=== PATIENT | female | born 1980 | race Caucasian/White ===

== ENCOUNTER 2018-10-16 12:25 | Observation (INO) | payer OTHER, SELFPAY ==
[2018-10-09 15:08] VITALS: BMI 38.0
[2018-10-15] VITALS (16 sets, daily range): BP systolic 91–123; BP diastolic 47–74; PULSE 59–88; RESP 10–18; TEMP 36.4–36.8; O2SAT 94–99; BMI 36.6
--- NOTE | 2018-10-15 | PATH_ITS ---
[facility] Accession Number: [id number] . 01 Material submitted: . uterus - UTERUS, BILATERAL TUBES AND OVARIES . 02 Diagnosis: Uterus, Bilateral Fallopian Tubes and Ovaries, Supracervical Hysterectomy and Bilateral Salpingo-oophorectomy: 1. Morcellated uterus with secretory endometrium and a benign endometrial polyp. 2. Bilateral ovaries and fallopian tubes with no diagnostic abnormality. 3. No evidence of neoplasia or hyperplasia. MRV/10/18/2018 . 02 Electronically signed: . Phyllis Walton MD, Pathologist NPI- [id number] . 01 Gross description: . Received in formalin, labeled uterus, bilateral tubes / ovaries, is a morcellated uterus (136 grams, 16.3 x 9.7 x 3.3 cm), an ovary (3.3 x 3.0 x 1.8 cm) with an attached fimbriated fallopian tube (length-3.5 cm, diameter-0.5 cm), a second ovary (3.9 x 2.4 x 1.8 cm), and a detached fimbriated fallopian tube (length-4.5 cm, diameter-0.5 cm). The specimen cannot be oriented and the endometrium and myometrium cannot be grossly measured. The cervix cannot be identified. The uterine parenchyma is regalado and unremarkable. The serosa is pale regalado smooth and shiny. The ovaries have wilkinson-yellow smooth shiny flat serosa and regalado-pink solid cystic parenchyma with corpus albicans and corpus luteum identified. The cavities (0.1 cm-0.8 cm) contain clear colorless fluid. The linings are smooth and flat with no excrescences identified. The fallopian tubes have wilkinson-regalado dull serosa and regalado unremarkable lumens. Section code: (A1-A4) uterine parenchyma, representative phlebotomy services; (A5) ovary with fallopian tube, representative phlebotomy services serial sections; (A6) ovary without fallopian tube, representative phlebotomy services serial sections; (A7) attached fallopian tube, representative phlebotomy services serial sections; (A8) attached fallopian tube fimbria, bivalved, entirely submitted; (A9) separate fallopian tube, representative phlebotomy services serial sections; (A10) separate fallopian tube fimbria; bivalved, entirely submitted. (JM:[id number]) A11-A15- additional representative phlebotomy services sections of endometrium and myometrium. /MRV . 02 Pathologist provided ICD-10: N93.9 . 02 CPT . 301198 Performed at: 01 [facility] [address] [facility], [place], [place] [id number] MD Luis Carlos Guillory MD Phone: [phone] Performed at: 02 [facility] [address] [place], [place] [id number] MD Phyllis Walton MD Phone: [phone]
[2018-10-15] MEDS: LACTATED RINGERS 1,000 ML 42 ML IV ×2 (07:28→09:19)
--- NOTE | 2018-10-15 07:40 | PM.PREOP ---
Pre-operative Note Interval Note History & Physical reviewed/Exam performed by Physician: Yes Changes to H&P: No
[2018-10-15] MEDS: CEFAZOLIN 2 GM/100 ML FROZ.PIGGY IV (07:45)
--- NOTE | 2018-10-15 08:26 | SUR.OPER ---
Lithotomy on padded OR bed. [place] Pad Positioner under torso. Head on pillow, arms padded and tucked at sides. Legs secured in padded yellow fins stirrups.
[2018-10-15] MEDS: BUPIVACAINE 0.5% W/ EPI (PF) VIAL 30 ML INJ (08:42)
[2018-10-15] MEDS: SODIUM CHLORIDE 0.9% FLUSH 10 ML IV (08:43)
[2018-10-15] MEDS: ROPIVACAINE 0.2% PF 2 MG/ML 10ML AMP 20 ML INJ (08:44)
--- NOTE | 2018-10-15 10:48 | SUR.PHASEI ---
Addendum entered by Eufemia Cotton R.N. 10/15/18 10:49: skin warm and dry, resp unlabored Original Note: 1035 Arouses easily to voice, very drowsy; warm blankets given, sites checked - CDI; 1045 Dr. Khanna has checked on the patient x2; stable; continues sleeping.
[2018-10-15] MEDS: HYDROMORPHONE 2 MG INJ 0.5 MG IV ×4 (10:55→11:44)
--- NOTE | 2018-10-15 11:02 | SUR.PHASEI ---
IV rx x2; patient was tearful after first dose, stating that this was the pain that she'd had all her life and was concerned that it wouldn't resolve. reassurance given. Report called to floor, followed by 2nd dose of pain med at the patient's request. Calm, no longer tearful, stated that her pain had improved.
--- NOTE | 2018-10-15 11:20 | SUR.PHASEI ---
3rd dose of pain med given. patient calm, no grimace, moaning, restlessness; just voices concern that the pain will not resolve. reassurance given.
--- NOTE | 2018-10-15 11:21 | SUR.PHASEI ---
RA sat 93%, returned to 2LNP; dozing. resp unlabored, skin warm and dry
--- NOTE | 2018-10-15 11:27 | SUR.PHASEI ---
no nausea, declines ice chips. pillow repositioned for comfort.
[2018-10-15] MEDS: ONDANSETRON 4 MG/2 ML INJ IV ×3 (11:41→22:25)
--- NOTE | 2018-10-15 11:43 | SUR.PHASEI ---
1141 attempted to give water, crackers and PO rx prior to transfer. Became nauseated after water. Rx given.
--- NOTE | 2018-10-15 11:51 | SUR.PHASEI ---
states that nausea has resolved; sleeping
--- NOTE | 2018-10-15 12:05 | SUR.PHASEI ---
Report update called to acute care RN; transported to floor by Teodora murphy RN
[2018-10-15] MEDS: LACTATED RINGERS 1,000 ML 100 ML IV ×2 (12:47→22:33)
[2018-10-15] MEDS: KETOROLAC 30 MG/ML VIAL IV ×2 (14:13→19:13)
[2018-10-15] MEDS: HYDROMORPHONE PCA (6MG/30ML) 6 MG/30 ML PCA.VIAL IV (15:44)
[2018-10-15] MEDS: METOCLOPRAMIDE 10 MG/2 ML INJ IV (17:01)
[2018-10-15] MEDS: DOCUSATE 250 MG CAPSULE PO (20:12)
--- NOTE | 2018-10-15 22:00 | PC.NURSE ---
Addendum entered by Phyllis Cuba R.N. 10/15/18 23:57: pt did better without dilaudid. given prns and torodol. pt did not want to try to morphine. wanted to have percocet. tried and pt stated percocet in the past has worked well for her. PT uses call gottlieb. prefers to have all four side rails up. scds on. will continue to monitor pt for safety. Original Note: 1500 Assumed care of pt. Pt dozes off. rated pain still at 5/10. and nauseated. given prns. started COUNTER MOLDER. mad nausea worse. called md and orders rec'd. md in to see pt not much later and meds changed. pt reported after Dilaudid was stopped had no more nausea. still mild pain. given prns and scheduled see AUG. dsg c.d.i. belongings and call light within reach. urine robyn with sediment. Pt uses call gottlieb. will continue to monitor. was able to keep some soup and Popsicle down. given other snacks per request. bed alarm on.
[2018-10-15] MEDS: OXYCODONE/ACETAMINOPHEN 5/325 TABLET 1 TAB PO (22:31)
[2018-10-16] VITALS (7 sets, daily range): BP systolic 116–131; BP diastolic 61–90; PULSE 72–91; RESP 16–18; TEMP 36.3–37.4; O2SAT 96–100
[2018-10-16] MEDS: KETOROLAC 30 MG/ML VIAL IV ×2 (00:56→06:05)
--- NOTE | 2018-10-16 02:17 | PC.NURSE ---
2300- POD#0 hysterectomy w/ 3 lap sites present on lower abdomen CDI. Pain managed at this time; moving 1PA w/ FWW. LR running as ordered into L hand periph IV. Pt stated Dilaudid made her sick, does not want to receive this med--prefers Percocet. 0100- Sched IV Toradol given; pt denies any needs. 0600- IV toradol given as scheduled.
[2018-10-16 05:59] LABS: Add Manual Diff / Slide Review NO; Basophils Absolute Auto 0 /uL (0-100); Basophils Percent Auto 0.3 % (0-2); Eosinophils Absolute Auto 0 /uL (0-450); Eosinophils Percent Auto 0.1 % (2-4); Hematocrit 33.3 % (36-46); Hemoglobin 11.1 g/dL (12.0-16.0); Lymphocytes Absolute Auto 1900 /uL (1100-4500); Lymphocytes Percent Auto 14.2 % (25-40); Mean Corpuscular HGB Conc 33.4 % (30-36); Mean Corpuscular Hemoglobin 27.6 PG (26-34); Mean Corpuscular Volume 82.6 fL (80-100); Monocytes Absolute Auto 1200 /uL (0-900); Monocytes Percent Auto 9.1 % (3-14); Neutrophils Absolute Auto 10200 /uL (1500-7000); Neutrophils Percent Auto 76.3 % (50-75); Platelet Count 241 X10^3/uL (150-400); Red Blood Cell Count 4.03 X10^6/uL (4.0-5.2); Red Cell Distribution Width 14.1 % (11.6-14.8); White Blood Cell Count 13.4 X10^3/uL (4.5-11.0)
[2018-10-16] MEDS: DOCUSATE 250 MG CAPSULE PO ×2 (08:24→20:13)
[2018-10-16] MEDS: OXYCODONE/ACETAMINOPHEN 5/325 TABLET 1 TAB PO ×3 (08:25→16:34)
--- NOTE | 2018-10-16 11:22 | PC.NURSE ---
Day Shift- At 1122, rec'd call from JEN Storm at Dr. Ames's office. Reported voided 400mls at 0820 and PVR was 0 mls. Pt voided again at 1100 for 150mls. S/L'd IVF at 1100. Pt drinking well, Okay with Dotty LI at this time. Lower pelvic area, lower abd pain controlled with PRN Percocet. No nausea, tolerating regular diet.
--- NOTE | 2018-10-16 16:31 | PC.NURSE ---
1500- rochelle shift- assumed care of pt from outgoing shift. pt states she feels much better today. Pt denies nausea at this time. Pt complains of pain. states she tried to pee every hour/1.5 hrs otherwise she feels that her bladder gets too full and that causes her pain. Pt given prns per AUG. pt ambulate steady gait in room per self. calls when needing assistance. flushed face. pt stated that she has been having problems with some caregivers for her father at home and is worried a bit about that. she is happy to stay another night to not have to deal with the situation entirely yet. will continue to monitor.
--- NOTE | 2018-10-16 16:41 | CM.DANOTE ---
Discharge Planning/Care Management DCP: assessment: case received this morning and discussed in Team Rounds. Pt is a 38 year old female who admitted yesterday for a planned gynecological procedure: per nursing notes: hysterectomy and bladder sling: Surgeon: Dr. Ames. No H&P or OP report is available at this time in the EMR. Payer: [employer]ou[employer] OWENS. PCP: listed: Vicky Burdick Pt lives with her in [place]. Review of Rn notes from this afternoon show that pt is expecting to stay overnight. Anticipate pt will d/c home once deemed stable for same by Dr. Ames/ DCP team will follow prn for any needs that may arise. CM Discharge Assessment Start: 10/16/18 16:40 Freq: Status: Active Protocol: Document 10/16/18 16:40 ITV (Rec: 10/16/18 16:41 ITV [id number]) Discharge Planning Assessment Advance Directives? No History Provided By Medical Record Prior Living Arrangements House Household Members family Independent with ADL's Yes Is patient alert and oriented? Yes Review Status In Process Next Review Type Continued Stay Review Pre-Anesthesia Assessment Start: 10/09/18 15:08 Freq: Status: Complete Protocol: Document 10/09/18 15:08 CAB (Rec: 10/09/18 15:11 CAB [id number]) Pre-Anesthesia Assessment Patient Information Reviewed Via Chart Review Primary Care Provider Lyndon Bowers Seen Specialist in Last 12 Months Yes Specialist Seen [employer] Primary Language [employer] House Supervisor Required No Height 154.94 cm Weight 91.172 kg Body Mass Index (BMI) 38.0 Anesthesia Review Requested No Shear Helper No Smoking Status Never smoker Pain Present Pain Reported Comment Pelvic History of Falling (Recent or History of No ) Patient is completely paralyzed or No completely immobile Mental Status Oriented to own ability Currently Taking a Beta Porsche No Anti-Coagulant Therapy No Has a Structured Cabling Technician No Cardiac Testing No Hx Pacemaker/ICD No Pacemaker Rep Required? No Cardiac Clearance Received Not Applicable Urinary Catheter Present No Hx Urinary Self Catheterization No Diabetes No Patient Discharge Plan Description Return Home
[2018-10-16] MEDS: SODIUM CHLORIDE 0.9% FLUSH 10 ML IV (20:13)
[2018-10-16] MEDS: OXYCODONE/ACETAMINOPHEN 5/325 TABLET 2 TAB PO (20:13)
--- NOTE | 2018-10-16 21:08 | PM.PNPO.1 ---
Subjective Date Patient Seen: 10/16/18 Time Patient Seen: 13:30 Interval history: Patient is postop day # 1 status post laparoscopic supracervical hysterectomy, bilateral salpingo oophorectomy, and TVT with cystoscopy Patient had significant postop pain management and nausea and vomiting last evening. We are still struggling with this today. She has voided 400 cc with no postvoid residual. She then voided 150 cc with no postvoid residual urine. Exam Vital Signs (past 8 hours): - 10/16/18 14:00 10/16/18 16:15 10/16/18 19:00 Temperature 98.8 F 98.1 F 98.5 F Pulse Rate 91 H 90 89 Respiratory Rate 16 16 18 Blood Pressure 128/90 125/82 128/72 Pulse Oximetry 99 100 100 Oxygen Delivery Method Room Air Oxygen Flow Rate 0 Narrative Exam Narrative: Generally: Patient is sitting up in bed, no acute distress Lungs: Clear to auscultation bilaterally Cardiovascular: Regular rate and rhythm Abdomen: Soft, flat, good bowel sounds in all 4 quadrants. Incisions: Clean dry and intact with op site Extremities: SCDs in place Objective Labs Result Diagrams: 10/16/18 05:10 Labs: Laboratory Results - last 24 hr 10/16/18 05:10 WBC 13.4 H RBC 4.03 Hgb 11.1 L Hct 33.3 L MCV 82.6 MCH 27.6 MCHC 33.4 RDW 14.1 Plt Count 241 Neut % (Auto) 76.3 H Lymph % (Auto) 14.2 L Richardson % (Auto) 9.1 Eos % (Auto) 0.1 L Baso % (Auto) 0.3 Neut # (Auto) 26420 H Lymph # (Auto) 1900 Richardson # (Auto) 1200 H Eos # (Auto) 0 Baso # (Auto) 0 Assessment & Plan Post-op Postoperative Procedures Operation Date: 10/15/18 07:45 Actual Procedures Side Surgeon p LSCH w/Bilat S&O Loren Ames MD s Tensionless Vaginal Tape w/Cystoscopy Loren Ames MD Postoperative day: 1 Postoperative status: marginal pain control and other (nausea and vomiting) Postoperative plan narrative: Con't n/v meds Pain control Anticipate d/c 10/17/18 Time Spent With Patient 15-24 minutes
[2018-10-17] MEDS: OXYCODONE/ACETAMINOPHEN 5/325 TABLET 2 TAB PO (06:02)
[2018-10-17 06:03] VITALS: BP 136/68; PULSE 74; RESP 16; TEMP 36.7; O2SAT 98
[2018-10-17 08:00] VITALS: BP 118/78; PULSE 64; RESP 16; TEMP 37; O2SAT 96
[2018-10-17] MEDS: DOCUSATE 250 MG CAPSULE PO (08:48)
[2018-10-17] MEDS: SODIUM CHLORIDE 0.9% FLUSH 10 ML IV (08:48)
[2018-10-17] MEDS: METOCLOPRAMIDE 10 MG/2 ML INJ IV (12:36)
--- NOTE | 2018-10-17 12:50 | PC.NURSE ---
PATIENT DENIES TROUBLE W/ URINATION, PASSING FLATUS. DISCUSSED PREVENTION OF CONSTIPATION. THIS AFTERNOON SHE STATES THAT SHE NOTICES THAT AFTER TAKING 2 TABS OXY THIS AM, HER STOMACH IS UPSET AND SHE FEELS SOMEWHAT NAUSEATED. GIVEN IV REGLAN. PATIENT STATES THAT HAS HAPPENED IN THE PAST IF SHE TAKES 2. STATES SHE TOLERATES 1 TAB. INSTRUCTED PATIENT THAT IF NAUSEA CONTINUES WHEN SHE GOES HOME, SHE CAN CALL DR. JAMA'S OFFICE AND REQUEST ANTIEMETIC TO BE CALLED IN TO HER PHARMACY. PATIENT CONFIRMS UNDERSTANDING. SET UP FOR A SHOWER. ALL HER DRSG SITES ARE OCCLUSIVE WITH TEGADERM OVER GAUZE. SHE HAS A FRIEND HERE WHO WILL DRIVE HER HOME. SHE STATES SHE DID TAKE A GOOD NAP THIS AM.
--- NOTE | 2018-10-30 14:07 | P.OP_ITS ---
Operative Date/Time/Diagnoses Date of procedure: 10/15/18 Time of procedure: 10:30 Pre-op diagnosis: Menorrhagia Dysmenorrhea Known endometriosis Stress urinary incontinence Post-op diagnosis: same Procedure: Procedures Operation Date: 10/15/18 07:45 Actual Procedures Side Surgeon p BEKAH w/Bilat S&O Loren Ames MD s Tensionless Vaginal Tape w/Cystoscopy Loren Ames MD Indications: Dysmenorrhea Menorrhagia Known endometriosis Stress urinary incontinence Surgeon: Loren Ames Social Work Job Titles: Donaldo Wu Anesthesia Type: General Operative Notes Findings: 10 week size anteverted uterus Normal tubes and ovaries Normal liver and gallbladder Status post appendectomy TVT not visible in the bladder Closure Type: primary Specimen(s): left tube, right tube and uterus Applied: catheter Estimated blood loss (mL): 75 Blood products transfused: none Procedure in detail: The patient was taken to the operating room where she was placed in the dorsal supine position. After adequate general endotracheal a nesthesia was achieved, she was placed in the dorsal lithotomy position, and prepped and draped in the usual sterile fashion. A timeout was performed. A bivalve speculum was placed into the vagina and the anterior lip of the cervix grasped with a single-tooth tenaculum. The cervical os was sequentially dilated until the ZUMI uterine manipulator could pass easily into the endometrial cavity. The single-tooth tenaculum was removed from the anterior lip of the cervix, and the bivalve speculum was removed from the vagina. Attention was then turned to the abdomen where 6 mL of half percent Marcaine with epinephrine were injected in the umbilical fold. A 5 mm incision was made. The Verhees needle was placed into the peritoneal cavity, and its placement confirmed by aspiration and drop test. The Verhees needle was removed. A 5 mm trocar was placed without difficulty. 2 other incisions were made midway between the pubic symphysis and umbilicus after 5 mL of half percent Marcaine with epinephrine were injected. These were 5 mm incisions. Two 5 mm trochars were placed under direct visualization. The right tube and ovary were grasped with an atraumatic grasper. Using the plasma kinetic with settings of 40 W the infundibulopelvic ligament was cauterized and cut all the way down to the cornua of the uterus. The cornua of the uterus was then grasped with an atraumatic grasper. The round ligament and broad ligament was cauterized and cut with plasma kinetic. Hemostasis was achieved. The bladder flap was created using the plasma kinetic with cautery and cut care home across. The uterine arteries on the right side were extensively cauterized with plasma kinetic. All of this was repeated on the left side. The remainder of the bladder flap was created using the plasma kinetic, and the bladder taken down off the lower uterine segment and cervix. Using the Endoloop, the cervix was amputated from the uterus 2 cm above the uterosacral ligaments, after the ZUMI uterine manipulator was removed from the uterus. There was a small amount of bleeding noted from the posterior edge of the cervix, and this was cauterized for hemostasis. A sponge stick was placed into the vagina. 6 mL of half percent Marcaine with epinephrine were injected above the pubic symphysis. A 12 mm trocar was placed and then removed. An Endobag was placed through the suprapubic incision and the uterus, tubes, and ovaries were placed into the Endobag. The Jesse placed into the endobag. The uterus was hand morcellated in approximately 14 pieces. The Jesse was removed. The Endobag was removed from the peritoneal cavity. The pelvis was copiously irrigated with warm normal saline. No bleeding was noted. The instruments were removed from the abdomen. The CO2 was allowed to escape. The suprapubic incision was closed on the fascia with 0 Vicryl. All of the incisions were closed with 4-0 undyed Vicryl in a subcuticular fashion. The moistened sponge stick was removed from the vagina. Sponge, lap, and instrument counts were correct x-2. The patient tolerated the procedure well, was taken to PACU in stable condition. Complications: none Post-operative Condition: stable Disposition: PACU Plan for aftercare: Home after recovery
== END 2018-10-17 13:15 | disposition home or self-care (01) ==
LOC: OR 10-17 10:47 → AC 10-17 10:47
PROVIDERS: Admitting Provider Obstetrics & Gynecology; PCP Family Medicine; Visit Provider Obstetrics & Gynecology
PROC: 0UT94ZL Resection of Uterus, Supracervical, Percutaneous Endoscopic Approach (ICD-10-PCS; CPT 58542; principal; 2018-10-15 07:45)
PROC: 0TSD0ZZ Reposition Urethra, Open Approach (ICD-10-PCS; CPT 58542; 2018-10-15 07:45)
DX: N80.9 Endometriosis, unspecified (principal); N92.0 Excessive and frequent menstruation with regular cycle; R10.2 Pelvic and perineal pain; N94.6 Dysmenorrhea, unspecified; N39.3 Stress incontinence (female) (male)
CPT/HCPCS: 58542; 85025; C1771; G0378; J0330; J0690; J1100; J1170; J1885; J2405; J2704; J2765; J2795; J3010

== ENCOUNTER → 2021-01-28 12:25 | Outpatient (CLI) | payer OTHER, MEDICAID, SELFPAY ==
[2020-11-16 08:32] VITALS: BMI 36.6
[2021-01-28 13:07] LABS: COVID19 -Nasal RAPID Negative (Negative)
== END ==
PROVIDERS: Visit Provider Physician Assistant
DX: J39.2 Other diseases of pharynx (principal); R06.02 Shortness of breath
CPT/HCPCS: 87635

== ENCOUNTER → 2021-02-12 15:24 | Outpatient (CLI) | payer OTHER, MEDICAID, SELFPAY ==
[2020-11-16 08:32] VITALS: BMI 36.6
[2021-02-13 08:13] LABS: HSV Type 1 AB, IgG <0.91 index (0.00-0.90)
== END ==
PROVIDERS: PCP Family Medicine; Referring Provider Family Medicine; Visit Provider Family Medicine
DX: A60.9 Anogenital herpesviral infection, unspecified (principal)
CPT/HCPCS: 36415; 86695; 86696

== ENCOUNTER 2021-02-18 10:03 | Day surgery (SDC) | payer OTHER, MEDICAID, SELFPAY ==
[2020-11-16 08:32] VITALS: BMI 36.6
[2021-02-11 14:44] VITALS: BMI 36.7
[2021-02-18] VITALS (9 sets, daily range): BP systolic 113–132; BP diastolic 65–85; PULSE 70–78; RESP 10–97; TEMP 36.3–36.5; O2SAT 10–99; BMI 37.0
--- NOTE | 2021-02-18 | PATH_ITS ---
[facility] Accession Number: [id number] . 01 Material submitted: . cervix - ENDOCERVIX AND ECTOCERVIX LEEP CONE BIOPSY SUTURE AT 12:00 . 02 Diagnosis: Endocervix and Ectocervix LEEP Cone Biopsy, Suture at 12 o'clock: High-grade squamous intraepithelial lesion / HARVEY 2-3 involves the 12-3 o'clock, 3-6 o'clock, and 9-12 o'clock quadrants with patchy involvement by low-grade squamous intraepithelial lesion / HARVEY 1 in the 6-9 o'clock quadrant and in the separate, additional portion of cervix described grossly. High-grade squamous intraepithelial lesion involves tissue margins in the 9-12 o'clock and in the 3-6 o'clock quadrants; indeterminate as to which tissue margins are involved. Low-grade squamous intraepithelial lesion involves a tissue margin in the 6-9 o'clock quadrant and in the additional portion of cervix described grossly; indeterminate as to which tissue margin is involved. No invasive tumor identified. Changes suggestive of previous instrumentation are present. [facility] 02/24/2021 1638 Local . 02 Electronically signed: . Karen Baron MD, Pathologist NPI- [id number] . 01 Gross description: . The specimen is received in formalin, labeled endocervix, ectocervix, LEEP cone biopsy and consists of a 1.5 x 1.4 cm irregular, partially disrupted regalado-pink smooth portion of ectocervix excised to a depth of 0.7 cm with a 0.3 x 0.2 cm os. There is a suture designated 12 o'clock. The endocervical margin is inked blue and the ectocervical margin is inked black. Also received is an additional 1.5 x 1.0 x 0.6 cm regalado-pink portion of cervix, the margin is inked blue. The specimen is serially sectioned and entirely submitted. . A1: 12- 3 o'clock. A2: 3-6 o'clock. A3: 6-9 o'clock. A4: 9-12 o'clock. A5: Additional portion of cervix. (EA:[id number] [id number]) /MRV 02/19/2021 0940 Local . 02 Microscopic: . An immunohistochemical stain for p16 is performed on blocks A2, A3, and A5 to evaluate for block reactivity and is positive for block immunostaining (A2). The control stained with appropriate reactivity. . Block A2: P16 block immunostaining supports the presence of high risk HPV DNA in this biopsy. . . * This test was developed and its performance characteristics determined by [employer]. It has not been cleared or approved by the U.S. Food and Drug Administration. The FDA has determined that such clearance or approval is not necessary. This test is used for clinical purposes. It should not be regarded as investigational or for research. . 02 Pathologist provided ICD-10: N87.1, N87.0 . 02 CPT . 119115, Q17992 Performed at: 01 [facility] [address] [place] [address], [place], [place] [id number] MD Luis Carlos Guillory MD Phone: [phone] Performed at: 02 [facility] [place] [address] [place] [id number] MD Phyllis Walton MD Phone: [phone]
--- NOTE | 2021-02-18 07:00 | PM.HP.1 ---
History of Present Illness History of Present Illness Date Patient Seen: 02/18/21 Time Patient Seen: 11:51 Chief complaint: SDC Narrative: Patient is a 41-year-old 2 para 2 who presents for LEEP cone biopsy of the cervix due to HARVEY 2-3 on colposcopic biopsy. Patient History Medical History Endometriosis Surgical History Hx laparoscopic cholecystectomy Hx of laparoscopy S/P bilateral salpingo-oophorectomy (10/15/18) S/P laparoscopic supracervical hysterectomy (10/15/18) Status post surgery (10/15/18) Family & Social History Social History: household members spouse,family Tobacco & Substance use: Smoking Status Former smoker alcohol intake current alcohol intake frequency holiday/special occasion Meds Home Medications and Allergies Allergies Allergy/AdvReac Type Severity Reaction Status Date / Time hydromorphone [From Dilaudid] AdvReac Mild Vomiting Verified 02/18/21 10:17 Exam Narrative Exam Narrative: HEENT: No thyromegaly, no anterior cervical or supraclavicular lymphadenopathy. Lungs:Clear to auscultation bilaterally, no wheezes. Cardiovascular: Regular rate and rhythm, no murmurs, rubs, or gallops. Abdomen: Well-healed laparoscopy scars. No hepatosplenomegaly. No masses palpable. External genitalia: Normal Vagina: Normal Cervix: Normal Bimanual exam: No adnexal masses or tenderness Assessment & Plan Assessment & Plan narrative: Assessment: 41-year-old 2 para 2 with HARVEY 2-3 on colposcopic biopsy of the cervix Plan: LEEP cone biopsy of the cervix The risks, benefits, and alternatives to the procedure were explained to the patient. The risks including bleeding, and infection. She understands these risks and agrees to proceed. A full par Q was held and consent form was signed. COVID-19 COVID-19 status: Negative Result date/Date tested (Pos, Neg/Pending): 02/18/21 Time Spent With Patient Time with patient: less than 15 minutes
--- NOTE | 2021-02-18 07:03 | PM.PREOP ---
Pre-operative Note COVID-19 COVID-19 status: Negative Result date/Date tested (Pos, Neg/Pending): 02/18/21 Interval Note History & Physical reviewed/Exam performed by Physician: Yes Changes to H&P: No H&P completed within 30 days and has changed as indicated here:: 02/18/21
[2021-02-18 10:35] LABS: COVID19 -Nasal RAPID Negative (Negative)
[2021-02-18] MEDS: LACTATED RINGERS 1,000 ML 100 ML IV ×2 (10:36→12:34)
--- NOTE | 2021-02-18 11:45 | SUR.OPER ---
Lithotomy on padded OR bed, head on pillow, arms secured on padded arm boards at <90 degrees abduction. Legs secured in padded yellow fins stirrups.
[2021-02-18] MEDS: POTASSIUM IODIDE/IODINE 473 ML SOLUTION TOP (12:21)
--- NOTE | 2021-02-18 12:54 | PM.GYNOP.1 ---
Operative Date/Time/Diagnoses Date of procedure: 02/18/21 Time of procedure: 12:54 Pre-op diagnosis: HARVEY 2-3 of the cervix Post-op diagnosis: same Procedure & Clinicians Procedure: Procedures Operation Date: 02/18/21 11:45 Actual Procedure Side Surgeon p LEEP cone BX of cervix Loren Ames MD Indications: HARVEY 2-3 on colposcopic biopsy Surgeon: Loren Ames Anesthesia Type: General (LMA) Operative Notes Findings: Lugol's light area from the 1 to 2 o'clock position Closure Type: not applicable Specimen(s): other (Ectocervical biopsy with suture at 12:00 p.m., endocervical biopsy no suture) Estimated blood loss (mL): 5 Procedure in detail: After informed consent was obtained, the patient was taken to the operating room where she was placed in the dorsal supine position. After adequate LMA general anesthesia was achieved, she was placed in the dorsal lithotomy position, and prepped and draped in the usual sterile fashion. A time-out was performed. A plastic coated bivalve speculum was placed into the vagina and a single-tooth tenaculum was placed on the anterior lip of the cervix. Lugol's was placed onto the cervix and there was a Lugol's light area at the 1 to 2 o'clock position. Three M masks were used by all personnel in the operating room. Three sources of suction were used. Using the 15 mm loop with settings at 60 cut and 40 cautery, a LEEP cone biopsy was performed. The specimen was tagged at 12:00 p.m.. A second smaller loop measuring 10 mm was used to do a small endocervical specimen. No suture was placed on the specimen. The Bovie was used on the base of the cone for hemostasis. Sponge, lap, and instrument counts were correct x2. The patient tolerated the procedure well, and was taken to PACU in stable condition. Complications: none Post-operative Condition: stable Disposition: PACU Plan for aftercare: Home after recovery
[2021-02-18] MEDS: LORazepam 2 MG/ML INJ 0.5 MG IV (13:10)
--- NOTE | 2021-02-18 13:14 | SUR.PHASEI ---
Received to PACU after general anesthesia. Airway patent, self maintained. Report from JEN Magaña and Dr Cook. Pt emotional, crying. Medicated with ativan as noted with good effect.
== END 2021-02-18 14:00 | disposition home or self-care (01) ==
PROVIDERS: PCP Family Medicine; Referring Provider Obstetrics & Gynecology; Visit Provider Obstetrics & Gynecology
PROC: 0UBC7ZZ Excision of Cervix, Via Natural or Artificial Opening (ICD-10-PCS; CPT 57522; principal; 2021-02-18 11:45)
DX: D06.0 Carcinoma in situ of endocervix (principal); Z20.822 Contact with and (suspected) exposure to COVID-19
CPT/HCPCS: 57522; 87635; J1100; J2060; J2405; J2704; J3010

== ENCOUNTER → 2021-03-22 11:38 | Outpatient (CLI) | payer OTHER, MEDICAID, SELFPAY ==
[2020-11-16 08:32] VITALS: BMI 36.6
[2021-03-22 15:34] LABS: COVID19 -Nasal RAPID Negative (Negative)
== END ==
PROVIDERS: PCP Family Medicine; Visit Provider Obstetrics & Gynecology
DX: Z01.812 Encounter for preprocedural laboratory examination (principal); Z20.822 Contact with and (suspected) exposure to COVID-19
CPT/HCPCS: 87635

== ENCOUNTER 2021-03-23 06:37 | Day surgery (SDC) | payer OTHER, MEDICAID, SELFPAY ==
[2020-11-16 08:32] VITALS: BMI 36.6
[2021-03-15 07:41] VITALS: BMI 36.8
[2021-03-23] VITALS (19 sets, daily range): BP systolic 73–118; BP diastolic 39–67; PULSE 47–84; RESP 10–18; TEMP 36.1–36.6; O2SAT 96–100; BMI 36.8
--- NOTE | 2021-03-23 | PATH_ITS ---
[facility] Accession Number: [id number] . 01 Material submitted: . cervix - CERVIX . 01 Diagnosis: Uterine Cervix, Resection: Focal residual high-grade squamous intraepithelial lesion (moderate dysplasia/HARVEY-2). Negative for glandular dysplasia and invasive malignancy. Margins of excision appear clear of high-grade squamous intraepithelial lesion [facility] 03/25/2021 1855 Local . 01 Comment: Background changes include multiple Nabothian cysts and focal tuboendometrioid metaplasia of the endocervical glands. . 01 Electronically signed: . Liseth Jacob MD, Pathologist NPI- [id number] . 01 Gross description: . The specimen is received in formalin, labeled cervix and consists of an unoriented 4.0 x 3.2 cm regalado-pink focally hemorrhagic smooth to ragged portions of ectocervix excised to a depth of 3.0 cm with a 1.0 x 0.3 cm os. The endocervical margin is inked blue. The ectocervical margin is inked black. The specimen is radially sectioned and entirely submitted. . A1-A22: Entire cervix plus specimen (A12-A19 bisected sections, proximal blue). (EA:[id number]) /MRV 03/24/2021 0953 Local . 01 Pathologist provided ICD-10: D06.9 . 01 CPT . 214899 Performed at: [facility] [address] [place] [address] [address], [place], [place] [id number] MD Luis Carlos Guillory MD Phone: [phone]
[2021-03-23] MEDS: LACTATED RINGERS 1,000 ML 42 ML IV ×2 (07:33→09:57)
--- NOTE | 2021-03-23 07:47 | PM.HP.1 ---
History of Present Illness History of Present Illness Date Patient Seen: 03/23/21 Time Patient Seen: 07:47 Chief complaint: SDC Narrative: Patient is a 41-year-old 2 para 2 with residual cervical dysplasia after a LEEP cone biopsy of the cervix. She presents for a vaginal trachelectomy. Patient History Medical History (Updated 02/08/21 @ 11:27 by GARCÍA Agustin) Endometriosis Surgical History (Updated 03/15/21 @ 07:44 by Rhonda Solis RN) H/O LEEP (02/18/21) Hx laparoscopic cholecystectomy Hx of laparoscopy S/P bilateral salpingo-oophorectomy (10/15/18) S/P laparoscopic supracervical hysterectomy (10/15/18) Status post surgery (10/15/18) Family & Social History Social History: household members none Tobacco & Substance use: Tobacco type e-cigarettes Smoking Status Former smoker alcohol intake current alcohol intake frequency holiday/special occasion Substance Use Type does not use Meds Home Medications and Allergies Allergies Allergy/AdvReac Type Severity Reaction Status Date / Time hydromorphone [From Dilaudid] AdvReac Mild Vomiting Verified 03/23/21 07:10 Exam Narrative Exam Narrative: HEENT: No thyromegaly, no anterior cervical or supraclavicular lymphadenopathy. Lungs:Clear to auscultation bilaterally, no wheezes. Cardiovascular: Regular rate and rhythm, no murmurs, rubs, or gallops. Abdomen: No scars. No hepatosplenomegaly. No masses palpable. External genitalia: Normal Vagina: Normal Bimanual exam: Cervix present. No adnexal masses or tenderness. Assessment & Plan Assessment & Plan narrative: Assessment: 41-year-old 2 para 2 with residual high-grade dysplasia on the cervix after a LEEP cone biopsy of the cervix Plan: Vaginal trachelectomy The risks, benefits, and alternatives to the procedure were explained to the patient. The risks including bleeding, infection, injury to the bladder or rectum. She understands these risks and agrees to proceed. A full par Q was held and consent form was signed. COVID-19 COVID-19 status: Negative Result date/Date tested (Pos, Neg/Pending): 03/22/21 Time Spent With Patient Time with patient: less than 30 minutes Critical Care time: I spent a total of [] minutes of critical care time on this patient's care today; this time is exclusive of procedural time.
--- NOTE | 2021-03-23 07:50 | PM.PREOP ---
Pre-operative Note COVID-19 COVID-19 status: Negative Result date/Date tested (Pos, Neg/Pending): 03/22/21 Interval Note History & Physical reviewed/Exam performed by Physician: Yes Changes to H&P: No H&P completed within 30 days and has changed as indicated here:: 03/23/21
[2021-03-23] MEDS: CEFAZOLIN 1 GM VIAL 2 GM IV (08:11)
--- NOTE | 2021-03-23 08:17 | SUR.OPER ---
Lithotomy on padded OR bed, head on pillow, arms secured on padded arm boards at <90 degrees abduction. Legs secured in padded yellow fins stirrups.
[2021-03-23] MEDS: BUPIVACAINE 0.5% (PF) VIAL 30 ML INJ (08:54)
[2021-03-23] MEDS: EPINEPHrine 1 MG/ML 0.15 MG INJ (08:55)
--- NOTE | 2021-03-23 09:27 | PM.GYNOP.1 ---
Operative Date/Time/Diagnoses Date of procedure: 03/23/21 Time of procedure: 09:27 Pre-op diagnosis: Residual high-grade dysplasia on the cervix status post LEEP cone biopsy Post-op diagnosis: same Procedure & Clinicians Procedure: Procedures Operation Date: 03/23/21 07:45 Actual Procedure Side Surgeon p Vaginal Trachelectomy Not Applicable Loren Ames MD Indications: Residual high-grade dysplasia of the cervix status post LEEP cone biopsy of the cervix Surgeon: Loren Ames Anesthesia Type: General and Local Operative Notes Findings: 4 cm long cervix Closure Type: primary Specimen(s): other (Cervix) Applied: catheter (To continue straining) and other (Vaginal packing in place) Estimated blood loss (mL): 100 Blood products transfused: none Procedure in detail: After informed consent was obtained, the patient was taken to the operating room where she was placed in the dorsal supine position. After adequate general endotracheal anesthesia was achieved, she was placed in the dorsal lithotomy position, and prepped and draped in the usual sterile fashion. A weighted speculum was placed into the vagina. The cervix was grasped on the anterior and posterior lips with single-tooth tenaculum. 10 cc 0.25% Marcaine with epinephrine were injected circumferentially around the cervix and the cervix was circumscribed with # 10 blade. The bladder and rectum were dissected off the cervix using an open moistened Ray-Joan. Posteriorly the peritoneum was grasped and entered sharply with the Metzenbaum scissors. The long weighted speculum was placed into the posterior cul-de-sac. Anteriorly the peritoneum was entered and a Shayla was placed into the anterior cul-de-sac. The uterosacral cardinal ligament complex was clamped, transected, and suture ligated on the right side. This was repeated on the patient's left side. One more clamp on the right side completed the pedicle and this was suture ligated with 0 Vicryl. This was repeated on the patient's left side. The left side there was a small amount of bleeding. An Allis clamp was placed on the area of bleeding and at 2 0 Vicryl suture in a [id number] suture was used for hemostasis. The bladder was drained. The vaginal cuff was closed with a series of simple interrupted sutures with 0 Vicryl. Hemostasis was achieved. A Betadine moistened vaginal pack was placed. A Galvin catheter was placed and there was clear yellow urine. A rectal exam was performed and there were no sutures in the rectum. The patient did have a stool during the surgery. Sponge, lap, and instrument counts were correct x2. The patient tolerated the procedure well, and was taken to PACU in stable condition. Complications: none Post-operative Condition: stable Disposition: PACU Plan for aftercare: To acute care after recovery
[2021-03-23] MEDS: KETOROLAC 30 MG/ML VIAL IV (09:51)
[2021-03-23] MEDS: fentaNYL 100 MCG/2 ML INJ IV ×2 (09:55→10:06)
--- NOTE | 2021-03-23 10:13 | SUR.PHASEI ---
Spoke with Dr Jaime in OR#2. Informed of patient pain 8-9/10 and crying. See new order for Lorazepam.
[2021-03-23] MEDS: LORazepam 2 MG/ML INJ 0.5 MG IV (10:23)
[2021-03-23] MEDS: ONDANSETRON 4 MG/2 ML INJ IV (10:28)
[2021-03-23] MEDS: ACETAMINOPHEN 325 MG TABLET 650 MG PO (10:35)
[2021-03-23] MEDS: OXYCODONE IR 5 MG TABLET PO ×5 (10:36→23:35)
--- NOTE | 2021-03-23 11:06 | SUR.PHASEI ---
Pt transferred via bed with 2 RN's to room 224 , report given to JEN Toney via phone . Pt Vss, cond stable pt on o2 @ 2l nc. Pt and family aware of plans of care
[2021-03-23] MEDS: LACTATED RINGERS 1,000 ML 100 ML IV ×2 (11:20→21:31)
[2021-03-23 16:45] LABS: Add Manual Diff / Slide Review NO; Basophils Absolute Auto 100 /uL (0-100); Basophils Percent Auto 0.3 % (0-2); Eosinophils Absolute Auto 0 /uL (0-450); Hematocrit 33.4 % (36-46); Hemoglobin 11.3 g/dL (12.0-16.0); Lymphocytes Absolute Auto 900 /uL (1100-4500); Lymphocytes Percent Auto 5.1 % (25-40); Mean Corpuscular Volume 85.4 fL (80-100); Monocytes Absolute Auto 300 /uL (0-900); Monocytes Percent Auto 1.7 % (3-14); Neutrophils Absolute Auto 16300 /uL (1500-7000); Neutrophils Percent Auto 92.9 % (50-75); Platelet Count 272 X10^3/uL (150-400); Red Blood Cell Count 3.91 X10^6/uL (4.0-5.2); Red Cell Distribution Width 13.8 % (11.6-14.8); White Blood Cell Count 17.6 X10^3/uL (4.5-11.0)
--- NOTE | 2021-03-23 17:16 | DI.US.S_ITS ---
PROCEDURE: US ABDOMEN LIMITED INDICATIONS: post op bleed TECHNIQUE: Real-time focused scanning was performed of the abdomen, with image documentation. COMPARISON: None. FINDINGS: There is mildly complex free fluid in the pelvis. IMPRESSION: Mildly complex fluid in pelvis. Dictated by: Carole Llanos M.D. on 03/23/2021 at 17:57 Approved by: Carole Llanos M.D. on 03/23/2021 at 17:58
[2021-03-23] MEDS: CALCIUM CARBONATE 500 MG TAB 1000 MG PO (19:05)
[2021-03-23] MEDS: DOCUSATE 100 MG CAPSULE 200 MG PO (21:32)
[2021-03-24] MEDS: OXYCODONE IR 5 MG TABLET PO ×2 (04:22→08:51)
[2021-03-24 04:33] VITALS: BP 104/61; PULSE 80; RESP 18; TEMP 36.6; O2SAT 97
[2021-03-24 05:22] LABS: Hematocrit 27.5 % (36-46)
[2021-03-24] MEDS: LACTATED RINGERS 1,000 ML 100 ML IV (07:36)
[2021-03-24 07:39] VITALS: BP 123/66; PULSE 87; RESP 14; TEMP 36.1; O2SAT 96
[2021-03-24] MEDS: DOCUSATE 100 MG CAPSULE 200 MG PO (08:50)
--- NOTE | 2021-03-24 09:33 | CM.DANOTE ---
Patient is a 41 yo female who was admitted on 03/23/21 for Vaginal trachelectomy. Pt has [facility] for insurance and her PCP is not listed. EMR was reviewed. Per OBGYN, pt had recent biopsy and now in for scheduled surgical procedure due to carcinoma. Per RN, pt had dunn cath removed and waiting for pt to void independently and pt has been independent in the room and no concerns noted at this time. No bedside assessment yet due to triage needs and no identified barriers to discharge. Plan: SW to follow to attempt assessment later today to confirm safe plan of d/c home likely later today and any further identified needs. MICHAEL Morfin Discharge Planning/Care Management CM Discharge Assessment Start: 03/24/21 09:30 Freq: Status: Active Protocol: Document 03/24/21 09:30 BF (Rec: 03/24/21 09:33 [id number]) Discharge Planning Assessment Assigned Cloud Systems Administrator MICHAEL Servin DPOA/Assigned Designee Name informally Dtr Contact Information [phone] Advance Directives? No Advance Directives on File No History Provided By Patient,Family Member,Medical Record Has Patient been admitted in last 30 No days? Prior Living Arrangements House Household Members none Type of transporation used prior to Drives own vehicle admit Independent with ADL's Yes Is patient alert and oriented? Yes Caregiver for Another No Barriers to Discharge No Discharge Plan Home Transportation Arrangement Family to transport home Referrals Initiated None needed Review Status In Process Please Provide Date Initial DC 03/24/21 Assessment Was Performed Next Review Type Continued Stay Review Pre-Anesthesia Assessment Start: 03/15/21 07:41 Freq: Status: Complete Protocol: Document 03/15/21 07:41 CAB (Rec: 03/15/21 07:48 CAB [id number]) Pre-Anesthesia Assessment Patient Information Reviewed Via Chart Review Comment COVID screen @ 03/17/21 Primary Care Provider Alok Justin Seen Specialist in Last 12 Months Yes Specialist Seen Regional Account Director Primary Language Gambian Preferred Language Gambian It Support Analyst Required No Height 154.94 cm Weight 88.451 kg Body Mass Index (BMI) 36.8 Hx Anesthesia Reactions No Hx Family Anesthesia Reaction No Hx Malignant Hyperthermia No Hx Blood Transfusion Reaction No Anesthesia Review Requested No Drywall Installer No alcohol intake current alcohol intake frequency holidays/special occasions only Smoking Status Former smoker Tobacco type e-cigarettes Substance Use Type does not use History of Falling (Recent or History of No ) Patient is completely paralyzed or No completely immobile Mental Status Oriented to own ability Is patient on oxygen? No Hx Sleep Apnea No CPAP/BIPAP use not prescribed Currently Taking a Beta [employer]orsche No Anti-Coagulant Therapy No Has a Ceo And President No Cardiac Testing No Hx Pacemaker/ICD No Pacemaker Rep Required? No Urinary Catheter Present No Hx Urinary Self Catheterization No Diabetes No Presence of External or Internal Medical Yes: bladder mesh Devices Marital Status Lives With none Patient Discharge Plan Description Return Home Do You Have Any Spiritual Beliefs That No May Affect Your HC Choices? Do You Have Any Cultural Practices That No May Affect Your HC Choices? Emergency Contact Name nam fish Emergency Contact Advance Directives? No Power of Fibre Optics Jointer No
--- NOTE | 2021-03-24 14:31 | PC.NURSE ---
A&Ox4. VSS. Pain 6/10 in pelvic region, given 5 mg PRN oxycodone which provides relief. Pulled her dunn catheter this morning. She has had 250 cc urine output. Waiting for next void to measure residual volumes with the bladder scanner. Daughter at bedside. Ate about 50% of her meals. Minimal vaginal discharge on peripad. Call light within reach, bed low.
[2021-03-24] MEDS: ACETAMINOPHEN 325 MG TABLET 650 MG PO (15:04)
[2021-03-24 16:00] VITALS: BP 92/55; PULSE 106; RESP 18; TEMP 36.7; O2SAT 94
--- NOTE | 2021-03-24 18:25 | PC.NURSE ---
Discharge Note- Patient discharged home per dr cantor. Discharge instructions and education reviewed with patient and signed. IV line removed and bandage applied. patient dressed self and packed up personal belongings. Patient left via [id number] with all personal belongings to private car at 1805.
== END 2021-03-24 18:05 | disposition home or self-care (01) ==
LOC: OR 06:39 → AC 09:26
PROVIDERS: Referring Provider Obstetrics & Gynecology; Visit Provider Obstetrics & Gynecology
PROC: (CPT 58260; principal; 2021-03-23 07:45)
DX: N87.1 Moderate cervical dysplasia (principal); N72 Inflammatory disease of cervix uteri; Z87.891 Personal history of nicotine dependence
CPT/HCPCS: 57530; 36415; 76705; 85014; 85018; 85025; J0171; J0690; J1100; J1885; J2060; J2405; J2704; J3010